=== PATIENT | male | born 1970 | race Two or more races ===

== ENCOUNTER 2020-04-05 11:45 | Emergency (ER) | payer OTHER ==
[~2020-04-05] VITALS: Ht 190.5 cm; Wt 150.0 kg
[~2020-04-05 11:45] MED LIST: CARVEDILOL; CHOL5000 PO; SPIRONOLACTONE
--- NOTE | 2020-04-05 13:17 | NUR ---
first contact with pt. pt c/o left leg pain and swelling. pt stated"both legs were swelling before but left leg is worse now" pt denies any other sx. pt's aox4. resps even and unlboared. bp/spo2 monitors in place. call light within reach.
[2020-04-05] MEDS ORDERED: HYDROcodone/APAP 5/325 TABLET ONE (13:45)
[2020-04-05] MEDS ORDERED: METHOCARBAMOL 750 MG TABLET ONE (13:45)
--- NOTE | 2020-04-05 13:48 | NUR ---
PT'S MOTHER'S NUMBER [phone]
--- NOTE | 2020-04-05 13:59 | NUR ---
pt in xray at this time.
[2020-04-05] MEDS ORDERED: METHOCARBAMOL 750 MG TABLET PO ONE (14:00)
[2020-04-05] MEDS ORDERED: HYDROcodone/APAP 5/325 TABLET PO ONE (14:00)
[2020-04-05 14:05] LABS: BASOPHILS % (AUTO) 1 % (0-1); EOSINOPHILS % (AUTO) 0 % (1-7); LYMPHOCYTES % (AUTO) 8 % (22-44); MEAN CORPUSCULAR HEMOGLOBIN 29.7 pg (27.5-34.5); MEAN CORPUSCULAR HGB CONC 33.6 g/dL (33.2-36.2); MEAN PLATELET VOLUME 8.6 fL (7.4-10.4); MONOCYTES % (AUTO) 8 % (2-9); NEUTROPHILS % (AUTO) 83 % (42-75); PLATELET COUNT 234 x10^3/uL (130-400); RED BLOOD COUNT 5.25 x10^6/uL (4.38-5.82); RED CELL DISTRIBUTION WIDTH 14.3 % (9.4-14.8)
[2020-04-05 14:06] LABS: MD NO
[2020-04-05 14:10] LABS: ALBUMIN 3.7 g/dL (3.4-5.0); ANION GAP 7 mmol/L (5-15); CALCIUM 9.3 mg/dL (8.5-10.1); CHLORIDE 107 mmol/L (98-107)
[2020-04-05 14:16] LABS: ALANINE AMINOTRANSFERASE 22 U/L (12-78); ALKALINE PHOSPHATASE 62 U/L (45-117); BILIRUBIN,TOTAL 1.6 mg/dL (0.2-1.0); CREATININE 1.67 mg/dL (0.7-1.3); TOTAL PROTEIN 7.4 g/dL (6.4-8.2)
--- NOTE | 2020-04-05 14:41 | NUR ---
pt medicated per emar. pt tolerated well.
[2020-04-05 14:42] VITALS: BP 114/68
--- NOTE | 2020-04-05 15:39 | NUR ---
Patient given discharge instructions and they have confirmed that they understand the instructions. Patient ambulatory with steady gait.
== END 2020-04-05 15:40 | disposition home or self-care (01) ==
LOC: ED 13:24
DX: N28.9 Disorder of kidney and ureter, unspecified (principal); M54.32 Sciatica, left side; R20.0 Anesthesia of skin; M10.9 Gout, unspecified; I50.9 Heart failure, unspecified; Z95.0 Presence of cardiac pacemaker
CPT/HCPCS: 36415; 72110; 80053; 83880; 85025; 99284